=== PATIENT | male | born 1965 | race Caucasian/White ===

== ENCOUNTER → 2018-08-15 | Outpatient (CLI) | payer OTHER ==
[~2018-08-15] MED LIST: CHOL100011 PO; METF500T17 PO
== END | disposition home or self-care (01) ==
LOC: STAR 14:43
PROVIDERS: ATTEND Internal Medicine Gastroenterology
DX: Z01.818 Encounter for other preprocedural examination (principal); K57.90 Diverticulosis of intestine, part unspecified, without perforation or abscess without bleeding
CPT/HCPCS: 93005

== ENCOUNTER 2018-08-22 07:12 | Day surgery (SDC) | payer OTHER ==
[~2018-08-22] VITALS: Ht 172.7 cm; Wt 142.4 kg
[2018-08-22] MEDS ORDERED: LACTATED RINGERS 1,000 ML IV SCH (07:39)
[2018-08-22 07:40] VITALS: BP 125/79
[2018-08-22] MEDS ORDERED: PROPOFOL 10 MG/ML, 20ML ONE (08:51)
[2018-08-22] MEDS ORDERED: FENTANYL PF 100 MCG/2ML IV PRN (09:00)
[2018-08-22] MEDS ORDERED: ONDANSETRON 2MG/ML, 2ML IV PRN (09:00)
[2018-08-22] MEDS ORDERED: OXYcodone 5 MG/5 ML ORAL.SOL UDC PO PRN (09:00)
[2018-08-22] MEDS ORDERED: ONDANSETRON ODT 8 MG PO PRN (09:00)
[2018-08-22] MEDS ORDERED: ACETAMINOPHEN 325 MG TABLET PO PRN (09:00)
== END 2018-08-22 10:30 | disposition home or self-care (01) ==
LOC: OUT 07:12
PROVIDERS: ATTEND Internal Medicine Gastroenterology
DX: Z12.11 Encounter for screening for malignant neoplasm of colon (principal); K57.30 Diverticulosis of large intestine without perforation or abscess without bleeding; K64.0 First degree hemorrhoids; K21.9 Gastro-esophageal reflux disease without esophagitis; E11.9 Type 2 diabetes mellitus without complications; E66.01 Morbid (severe) obesity due to excess calories; Z68.42 Body mass index [BMI] 45.0-49.9, adult; Z79.899 Other long term (current) drug therapy; Z86.010 Personal history of colon polyps
CPT/HCPCS: 45378; 82962; J2704; J7120